=== PATIENT | female | born 1955 | race Caucasian/White ===

== ENCOUNTER 2017-01-29 09:08 | Emergency (ER) | payer BC, SELFPAY ==
--- NOTE | 2017-01-29 09:50 | RAD ---
LEFT KNEE 4 VIEWS: DATE: 01/29/17 HISTORY: Fall. Left knee injury. FINDINGS: Joint spaces are preserved. There is prominent tricompartmental osteophytosis. Fluid distends the sup rapatellar bursa on the lateral view. No acute fracture or dislocation are apparent. IMPRESSION: No displaced fractures are evident. Joint fluid could reflect hemarthrosis from internal derangement or joint effusion from prominent osteoarthritic changes. POS: [facility]
[2017-01-29] MEDS ORDERED: Ibuprofen 800 MG TAB ONE (10:19)
[2017-01-29] MEDS ORDERED: Bacitracin Zinc 1 Packet ONE (10:19)
== END 2017-01-29 10:45 | disposition home or self-care (01) ==
LOC: ERS 09:08
DX: S61.412A Laceration without foreign body of left hand, initial encounter (principal); S80.02XA Contusion of left knee, initial encounter; F41.9 Anxiety disorder, unspecified; F32.9 Major depressive disorder, single episode, unspecified; W01.0XXA Fall on same level from slipping, tripping and stumbling without subsequent striking against object, initial encounter

== ENCOUNTER 2019-12-09 16:15 | Outpatient (CLI) | payer MEDICARE ==
--- NOTE | 2019-12-09 16:35 | RAD ---
Radiograph right wrist 3 views: 12/09/2019 HISTORY: 63-year-old female with nontraumatic right wrist pain FINDINGS: The scapholunate interval is at least mildly widened. No other malalignment. Very severe DJD at first CMC joint. Severe joint space narrowing with sclerosis at radiolunate articulation. Associated large subchondral cyst (geode) at the ulnar side of the distal radial metaphysis. Mild DJD at radial scaphoid articulation. High-grade joint space narrowing and some sclerosis lunate-capitate articulation. Moderate DJD at STT complex. IMPRESSION: 1.) Very severe osteoarthrosis of the first carpometacarpal joint. 2) widening of scapholunate interval, suspicious for tear of the scapholunate ligament. 3) moderate osteoarthrosis at radiocarpal joint and triscaphe region.
== END 2019-12-09 16:16 | disposition home or self-care (01) ==
LOC: BICRAD 16:15
PROVIDERS: ATTEND Internal Medicine
DX: M25.531 Pain in right wrist (principal); M18.11 Unilateral primary osteoarthritis of first carpometacarpal joint, right hand; M19.031 Primary osteoarthritis, right wrist; M24.231 Disorder of ligament, right wrist